=== PATIENT | male | born 1990 | race Caucasian/White ===

== ENCOUNTER → 2022-06-18 | Outpatient (CLI) | payer BC ==
[~2022-06-18] MED LIST: CLEOCIN HCL300 MG PO; CORTIZONE-1057 GM TP; FLEXERIL 10 MG10 MG PO; VISTARIL25 MG PO
== END ==
LOC: KOH-I 15:22
DX: M79.671 Pain in right foot (principal); R60.0 Localized edema; M19.071 Primary osteoarthritis, right ankle and foot
CPT/HCPCS: 73630

== ENCOUNTER → 2022-07-09 | Outpatient (CLI) | payer BC | LOC: KOH-I 08:18 | DX: M79.671 Pain in right foot (principal); M19.071 Primary osteoarthritis, right ankle and foot | CPT/HCPCS: 73630 ==